=== PATIENT | male | born 1990 | race Caucasian/White ===

== ENCOUNTER 2017-02-26 13:21 | Emergency (ER) | payer SELFPAY ==
[~2017-02-26] VITALS: Ht 175.3 cm; Wt 90.7 kg
--- NOTE | 2017-02-26 13:43 | Emergency Room Report ---
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 N Clinical Suspician of Infection? N Mental Status: 1 - Regular (Normal Baseline) Sepsis Risk:Low Sepsis Risk Have you (or family members/close friends) recently traveled outside the [place]? N If Yes, where/when: Have you had exposure to infectious disease within the past month? N TB? Other? Specify: Source patient, RN notes reviewed Exam Limitations no limitations Comment Pain in right ear for about 2 to 3 days. History of having tubes in ears in the past as well. NO fever but decreased hearing Cardiac Chest Pain Chest pain indicative of cardiac No ALLERGIES Coded Allergies: NO KNOWN ALLERGIES (02/26/17) Home Medications Reported Medications No Known Home Medications History Medical History General Angina: No [place]: No Hypertension? No Hyperlipidemia? No CHF? No COPD? No Asthma? No Thyroid Problems? No Hypothyroidism? No CVA? No Seizures? No Diabetes? No GB Disease: No MRSA? No TB? No Cancer? No Immunization Hx DT/Tetanus 1-4 YRS Surgical Hx Previous Surgery?Y EAR TUBES Social History Smoking Hx Smoker: Current Every Day Smoker Tobacco: Yes Type Cigarettes Packs/day 1 1/2 - 2 Packs Alcohol Alcohol: No Review of Systems All Other Systems Reviewed and Negative Constitutional see HPI ENT see HPI, ear pain. Physical Exam Vital Signs Vital Signs Date Time Temp Pulse Resp B/P Pulse O2 O2 Flow FiO2 Ox Delivery Rate 02/26 1327 97.8 98 18 148/96 98 General Appearance normal appearance, WD/WN, no apparent distress Ear, Nose, Throat abnormal TM (R), abnormal TM (L), hearing decreased Respiratory Status No: respiratory distress. Lung Sounds bilateral: normal breath sounds. 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 No Departure Departure Time of Disposition 1353 Disposition DC Home or Self Care(routine) Clinical Impression Primary Impression: Bilateral otitis media Qualifiers: Otitis media type: suppurative Chronicity: acute Recurrence: not specified as recurrent Spontaneous tympanic membrane rupture: without spontaneous rupture Qualified Code: H66.003 - Acute suppurative otitis media without spontaneous rupture of ear drum, bilateral Secondary Impressions: Bilateral otitis externa Qualifiers: Otitis externa type: diffuse Chronicity: acute Qualified Code: H60.313 - Diffuse otitis externa, bilateral Condition STABLE Referrals Denice Chadwick MD (Family) Patient Instructions DI for Otitis Externa, DI for Otitis Media (Middle Ear Infection)-Child, Ear Infections (Alternative Therapy), Middle Ear Infection, Otitis Externa Additional Instructions Use medicines as directed and followup with PCP in 3 to 4 days to recheck. May need referral to ENT Discharge Counseling Counseled pt/family regarding diagnosis, test results, medications/RX, home care, follow up needs Prescriptions Current Visit Scripts Amoxicillin/Potassium Clav (Augmentin 875-125 Tablet) 1 EACH PO BID #20 TAB AYLA/POLYMYX B SULF/DEXAMETH (Ylmdft-Swejr-Zxcyqows Eye Drop) 4 DROP OT QID #5 EACH Ref 1 Cetirizine Hcl (Zyrtec) 10 MG PO DAILY #30 SGL ED Critical Care Critical Care No If Critical Care minutes are documented, the time involved in the performance of seperately reportable procedures was not counted toward critical care time documented. I directly delivered medical care to this critically ill and/or injured patient. Timely evaluation and treatment was necessary to address the significant organ system(s) dysfunction present in this patient. at 1359
--- NOTE | 2017-02-26 13:43 | Emergency Room Report ---
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 N Clinical Suspician of Infection? N Mental Status: 1 - Regular (Normal Baseline) Sepsis Risk:Low Sepsis Risk Have you (or family members/close friends) recently traveled outside the [place]? N If Yes, where/when: Have you had exposure to infectious disease within the past month? N TB? Other? Specify: Source patient, RN notes reviewed Exam Limitations no limitations Comment Pain in right ear for about 2 to 3 days. History of having tubes in ears in the past as well. NO fever but decreased hearing Cardiac Chest Pain Chest pain indicative of cardiac No ALLERGIES Coded Allergies: NO KNOWN ALLERGIES (02/26/17) Home Medications Reported Medications No Known Home Medications History Medical History General Angina: No [place]: No Hypertension? No Hyperlipidemia? No CHF? No COPD? No Asthma? No Thyroid Problems? No Hypothyroidism? No CVA? No Seizures? No Diabetes? No GB Disease: No MRSA? No TB? No Cancer? No Immunization Hx DT/Tetanus 1-4 YRS Surgical Hx Previous Surgery?Y EAR TUBES Social History Smoking Hx Smoker: Current Every Day Smoker Tobacco: Yes Type Cigarettes Packs/day 1 1/2 - 2 Packs Alcohol Alcohol: No Review of Systems All Other Systems Reviewed and Negative Constitutional see HPI ENT see HPI, ear pain. Physical Exam Vital Signs Vital Signs Date Time Temp Pulse Resp B/P Pulse O2 O2 Flow FiO2 Ox Delivery Rate 02/26 1327 97.8 98 18 148/96 98 General Appearance normal appearance, WD/WN, no apparent distress Ear, Nose, Throat abnormal TM (R), abnormal TM (L), hearing decreased Respiratory Status No: respiratory distress. Lung Sounds bilateral: normal breath sounds. 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 No Departure Departure Time of Disposition 1353 Disposition DC Home or Self Care(routine) Clinical Impression Primary Impression: Bilateral otitis media Qualifiers: Otitis media type: suppurative Chronicity: acute Recurrence: not specified as recurrent Spontaneous tympanic membrane rupture: without spontaneous rupture Qualified Code: H66.003 - Acute suppurative otitis media without spontaneous rupture of ear drum, bilateral Secondary Impressions: Bilateral otitis externa Qualifiers: Otitis externa type: diffuse Chronicity: acute Qualified Code: H60.313 - Diffuse otitis externa, bilateral Condition STABLE Referrals Denice Chadwick MD (Family) Patient Instructions DI for Otitis Externa, DI for Otitis Media (Middle Ear Infection)-Child, Ear Infections (Alternative Therapy), Middle Ear Infection, Otitis Externa Additional Instructions Use medicines as directed and followup with PCP in 3 to 4 days to recheck. May need referral to ENT Discharge Counseling Counseled pt/family regarding diagnosis, test results, medications/RX, home care, follow up needs Prescriptions Current Visit Scripts Amoxicillin/Potassium Clav (Augmentin 875-125 Tablet) 1 EACH PO BID #20 TAB AYLA/POLYMYX B SULF/DEXAMETH (Xwxnlr-Xiook-Qsffsabp Eye Drop) 4 DROP OT QID #5 EACH Ref 1 Cetirizine Hcl (Zyrtec) 10 MG PO DAILY #30 SGL ED Critical Care Critical Care No If Critical Care minutes are documented, the time involved in the performance of seperately reportable procedures was not counted toward critical care time documented. I directly delivered medical care to this critically ill and/or injured patient. Timely evaluation and treatment was necessary to address the significant organ system(s) dysfunction present in this patient. at 1359
[2017-02-26 14:07] VITALS: BP 138/87
--- OUTSIDE RECORDS SUMMARY | 2017-03-07 06:38 | External Medical Summary Rpt | CCD ---
Author Author , CAM Organization CAM Address Unknown Phone [email or web address] Support Name Relationship Address Phone RUTH Next Of Kin [address]1 ALEJANDRA FOSTER, [phone] [facility]31 Purpose Continuity of Care Document - 12-25-2012 through 2016 Allergies, Adverse Reactions, Alerts Type Allergy to substance Adverse Reaction to Substance Substance Reaction Severity NO KNOWN ALLERGIES Unknown Unknown Medications Na ND Rx Da Fi Fi Am Da Di Ph RX Ph St me C No te ll ll ou ys ag ar # ys at rm s nt no ma ic us Or Da si cy ia de te s n re d CE 00 08 0 No FT 78 -0 RI 19 1- Lo AX 32 20 ng ON 89 13 er E 5 1 Ac GM ti ve AL LI 63 08 0 No DO 32 -0 CA 30 1- Lo IN 20 20 ng E 11 13 er HC 0 L Ac 1% ti ve AL De 00 08 0 No xa 51 -0 me 74 1- Lo th 90 20 ng as 12 13 er on 5 e Ac 4M ti G/ ve Ml Sd v TR 00 08 0 No AM 09 -0 AD 30 1- Lo OL 05 20 ng 80 13 er 50 1H MG Ac ti TA ve BL ET TA KE HO ME Vital Signs 12-25-2012 22:08 Name Value Interpretat Reference Comment ion Range Body 98.3 [degF] Temperature BP 76 mm[Hg] Diastolic BP Systolic 136 mm[Hg] Heart 87 /min Rate/Pulse O2% 99 % Respiratory 17 /min Rate 12-25-2012 21:54 Name Value Interpretat Reference Comment ion Range Body 98.3 [degF] Temperature BP 76 mm[Hg] Diastolic BP Systolic 136 mm[Hg] Heart 87 /min Rate/Pulse O2% 99 % Respiratory 17 /min Rate Encounters Encounter Start End Date Code Location Performer Type Date Emergency VONNIE Rangel MD (ER) 3 21:19 3 22:12 [facility]
--- OUTSIDE RECORDS SUMMARY | 2017-03-07 06:38 | External Medical Summary Rpt | CCD ---
Author Author , CAM Organization CAM Address Unknown Phone [email or web address] Immunization Name Date Rout CVX Reac Dose Comm Prov Is Faci e tion ent ider Refu lity Give sed n Hep 10-2 8 999 Hist H149 No H149 B, 7-20 oric ped/ 00 al adol Info rmat ion - Sour ce Unsp ecif ied Hep 05-2 8 999 Hist H149 No H149 B, 2-20 oric ped/ 00 al adol Info rmat ion - Sour ce Unsp ecif ied Hep 04-2 8 999 Hist H149 No H149 B, 0-20 oric ped/ 00 al adol Info rmat ion - Sour ce Unsp ecif ied MMR 04-2 3 999 Hist H149 No H149 0-20 oric 00 al Info rmat ion - Sour ce Unsp ecif ied
--- OUTSIDE RECORDS SUMMARY | 2017-03-07 06:38 | External Medical Summary Rpt ---
Author Author CAM Chambers, CAM Chambers Organization [employer] Address Unknown Phone Unavailable
--- OUTSIDE RECORDS SUMMARY | 2017-03-07 06:38 | External Medical Summary Rpt | CCD ---
Author Author , CAM Organization CAM Address Unknown Phone [email or web address] Immunization Name Date Rout CVX Reac Dose [...]
--- OUTSIDE RECORDS SUMMARY | 2017-03-07 06:38 | External Medical Summary Rpt | CCD ---
Author Author , CAM Organization CAM Address Unknown Phone [email or web address] Support Name Relationship Address Phone RUTH Next Of Kin [address]1 ALEJANDRA FOSTER, [phone] [facility]31 Purpose Continuity of Care Document - [...] Rangel MD (ER) 3 21:19 3 22:12 [facility]
--- OUTSIDE RECORDS SUMMARY | 2017-03-07 06:38 | External Medical Summary Rpt | CCD ---
Author Author CAM Address Unknown Phone [email or web address] Purpose Continuity of Care Document - through 2016
--- OUTSIDE RECORDS SUMMARY | 2017-03-07 06:38 | External Medical Summary Rpt | CCD ---
Author Author CAM Address Unknown Phone [email or web address] Purpose Continuity of Care Document - through 2016
== END 2017-02-26 14:08 | disposition home or self-care (01) ==
LOC: ER 13:21
DX: H66.003 Acute suppurative otitis media without spontaneous rupture of ear drum, bilateral (principal); H60.313 Diffuse otitis externa, bilateral; F17.210 Nicotine dependence, cigarettes, uncomplicated